=== PATIENT | female | born 1955 | race Caucasian/White ===

== ENCOUNTER 2023-01-20 06:51 | Day surgery (SDC) | payer BC, MEDICARE ==
[2023-01-18 13:46] VITALS: BMI 30.1
[2023-01-20 08:15] LABS: Hematocrit 34.9 % (36.0-47.0)
[2023-01-20] MEDS ORDERED: Lidocaine 1% PF 5 ML VIAL ONE ×2 (08:37→08:46)
[2023-01-20] MEDS ORDERED: Lidocaine 1% (PF) 30 ML VIAL ONE (08:37)
[2023-01-20] MEDS ORDERED: EPINEPHrine 1 MG/ML AMP ONE (08:37)
[2023-01-20] MEDS ORDERED: SUGAMMADEX SODIUM 200 MG/2 ML VIAL ONE (08:45)
[2023-01-20] MEDS ORDERED: fentaNYL PF 100 MCG/2 ML SYRINGE ONE (08:45)
[2023-01-20] MEDS ORDERED: Rocuronium Bromide 10 MG/ML (10ML VIAL) ONE (08:46)
[2023-01-20] MEDS ORDERED: Ondansetron PF 4 MG/2 ML Vial ONE (08:46)
[2023-01-20] MEDS ORDERED: PROPOFOL 200 MG/20 ML VIAL ONE (08:46)
[2023-01-20] MEDS ORDERED: Dexamethasone 20 MG/5 ML VIAL ONE (08:46)
[2023-01-20] MEDS ORDERED: fentaNYL 50 mcg/mL 1 mL Vial ONE (10:30)
== END 2023-01-20 11:30 | disposition home or self-care (01) ==
LOC: SDC 06:51
PROVIDERS: ATTEND Otolaryngology Plastic Surgery within the Head & Neck
PROC: 0CBT8ZX Excision of Right Vocal Cord, Via Natural or Artificial Opening Endoscopic, Diagnostic (ICD-10-PCS; principal; 2023-01-20)
DX: J38.1 Polyp of vocal cord and larynx (principal); J38.3 Other diseases of vocal cords; I10 Essential (primary) hypertension; M19.90 Unspecified osteoarthritis, unspecified site; E05.90 Thyrotoxicosis, unspecified without thyrotoxic crisis or storm; Z98.890 Other specified postprocedural states; Z79.890 Hormone replacement therapy; Z79.899 Other long term (current) drug therapy
CPT/HCPCS: 85014; 85018; 88305; 88312; 88342; J0171; J1100; J2001; J2405; J2704; J3010

== ENCOUNTER 2023-12-08 05:59 | Day surgery (SDC) | payer MEDICARE, OTHER ==
[2023-12-03 14:17] VITALS: BMI 29.8
[2023-12-08] MEDS ORDERED: PROPOFOL 20 ML ONE ×2 (08:03→10:20)
[2023-12-08] MEDS ORDERED: fentaNYL 50 mcg/mL 1 mL Vial ONE ×2 (08:03→11:10)
[2023-12-08] MEDS ORDERED: Lidocaine 1% PF 5 ML VIAL ONE (08:03)
[2023-12-08] MEDS ORDERED: Rocuronium Bromide 10 MG/ML (10ML VIAL) ONE (08:03)
[2023-12-08] MEDS ORDERED: CEFAZOLIN 2 GM VIAL ONE ×2 (08:52→11:36)
[2023-12-08] MEDS ORDERED: Sodium Chloride 0.9% 100 ML ONE ×2 (08:52→11:37)
[2023-12-08] MEDS ORDERED: fentaNYL PF 100 MCG/2 ML SYRINGE ONE (09:20)
[2023-12-08] MEDS ORDERED: PHENYLEPHRINE-NS 100 MCG/ML 10 ML SYRINGE ONE (09:32)
[2023-12-08] MEDS ORDERED: Ondansetron PF 4 MG/2 ML Vial ONE (09:32)
[2023-12-08] MEDS ORDERED: Labetalol HCl 100 MG/20 ML VIAL ONE (09:35)
[2023-12-08] MEDS ORDERED: SUGAMMADEX SODIUM 200 MG/2 ML VIAL ONE ×2 (10:25→10:32)
[2023-12-08] MEDS ORDERED: hydrALAZINE 20 MG/ML VIAL ONE (11:04)
[2023-12-08] MEDS ORDERED: HYDROcodone/Acetaminophen 5/325 mg Tablet ONE (12:32)
== END 2023-12-08 12:59 | disposition home or self-care (01) ==
LOC: SDC 05:59
PROVIDERS: ATTEND Neurological Surgery
PROC: 0RG20A0 Fusion of 2 or more Cervical Vertebral Joints with Interbody Fusion Device, Anterior Approach, Anterior Column, Open Approach (ICD-10-PCS; principal; 2023-12-08)
PROC: 0RG2070 Fusion of 2 or more Cervical Vertebral Joints with Autologous Tissue Substitute, Anterior Approach, Anterior Column, Open Approach (ICD-10-PCS; 2023-12-08)
DX: M54.12 Radiculopathy, cervical region (principal); K21.9 Gastro-esophageal reflux disease without esophagitis; I10 Essential (primary) hypertension; E03.9 Hypothyroidism, unspecified; Z79.82 Long term (current) use of aspirin; Z79.899 Other long term (current) drug therapy; Z79.890 Hormone replacement therapy; Z91.040 Latex allergy status; Z96.651 Presence of right artificial knee joint; Z88.2 Allergy status to sulfonamides
CPT/HCPCS: 20931; 20936; 22551; 22552; 22845; 22853 ×2; 93005; C1713 ×4; J0360; J2405; J2704; J3010; J3490; 93010